=== PATIENT | male | born 1975 | race Two or more races ===

== ENCOUNTER 2016-06-23 19:37 | Observation (INO) | payer SELFPAY ==
[~2016-06-23] VITALS: Ht 154.9 cm; Wt 73.6 kg
[2016-06-23] MEDS ORDERED: FAMOTIDINE 20 MG/2 ML ONE (20:11)
[2016-06-23] MEDS ORDERED: ONDANSETRON 2MG/ML, 2ML ONE (20:11)
[2016-06-23] MEDS ORDERED: SODIUM CHLORIDE 0.9% 1,000ML IVBOLUS ONE (20:30)
[2016-06-23] MEDS ORDERED: SODIUM CHLORIDE FLUSH 10ML SYR IVF ONE (20:30)
[2016-06-23] MEDS ORDERED: FAMOTIDINE 20 MG/2 ML IVP ONE (20:30)
[2016-06-23] MEDS ORDERED: ONDANSETRON 2MG/ML, 2ML IVPush ONE (20:30)
[2016-06-23 21:26] LABS: HEMOGLOBIN 15.6 g/dL (13.7-18.0)
[2016-06-23 21:38] LABS: ASPARTATE AMINO TRANSFERASE 545 U/L (15-37); BLOOD UREA NITROGEN 10 mg/dL (7-18)
[2016-06-23] MEDS ORDERED: METRONIDAZOLE PMX 500MG/100ML 100 ML ONE (22:28)
[2016-06-23] MEDS ORDERED: CEFOTETAN PMX 2GM/50ML 50 ML IV ONE (22:30)
[2016-06-23] MEDS ORDERED: METRONIDAZOLE PMX 500MG/100ML 100 ML IV ONE (22:30)
[2016-06-24 00:13] VITALS: BP 118/73
[2016-06-24 07:59] VITALS: BP 102/62
[2016-06-24] MEDS ORDERED: BUPIVACAINE/PF-EPI 0.25% 1:200K ONE (10:37)
[2016-06-24] MEDS ORDERED: FENTANYL PF 250 MCG/5ML ONE (10:51)
[2016-06-24] MEDS ORDERED: MIDAZOLAM 1 MG/ML, 2ML ONE (10:51)
[2016-06-24] MEDS ORDERED: EPINEPHRINE 1 MG/ML, 1ML ONE (10:57)
[2016-06-24] MEDS ORDERED: SUCCINYLCHOLINE 20 MG/ML, 10ML ONE (10:57)
[2016-06-24] MEDS ORDERED: NEOSTIGMINE 1 MG/ML, 10ML ONE (10:57)
[2016-06-24] MEDS ORDERED: ROCURONIUM 10 MG/ML ONE (10:57)
[2016-06-24] MEDS ORDERED: CEFAZOLIN 1,000 MG ONE (10:57)
[2016-06-24] MEDS ORDERED: PROPOFOL 10 MG/ML, 20ML ONE (10:57)
[2016-06-24] MEDS ORDERED: DEXAMETHASONE 4 MG/ML, 1ML ONE (10:57)
[2016-06-24] MEDS ORDERED: GLYCOPYRROLATE 0.2MG/1ML ONE (10:57)
[2016-06-24] MEDS ORDERED: ONDANSETRON 2MG/ML, 2ML ONE ×2 (10:57→12:17)
[2016-06-24] MEDS: FENTANYL PF 100 MCG/2ML IV PRN ×2 (12:00→12:10)
[2016-06-24] MEDS ORDERED: FENTANYL PF 100 MCG/2ML ONE (12:17)
[2016-06-24] MEDS ORDERED: OXYcodone 5 MG/5 ML ORAL.SOL UDC ONE (12:35)
[2016-06-24] MEDS ORDERED: METOCLOPRAMIDE 5 MG/ML, 2ML IV PRN (13:00)
[2016-06-24] MEDS ORDERED: LABETALOL 5MG/ML, 20ML IV PRN (13:00)
[2016-06-24] MEDS ORDERED: OXYcodone 5 MG/5 ML ORAL.SOL UDC PO PRN (13:00)
[2016-06-24] MEDS ORDERED: ACETAMINOPHEN 325 MG TABLET PO PRN (13:00)
[2016-06-24] MEDS ORDERED: ONDANSETRON 2MG/ML, 2ML IVPush PRN (13:00)
[2016-06-24] MEDS ORDERED: hydrALAzine 20 MG/ML, 1ML IV PRN (13:00)
[2016-06-24] MEDS ORDERED: HYDROmorphone 1 MG/ML, 1ML IV PRN (13:00)
[2016-06-24 13:22] VITALS: BP 122/79
[2016-06-24] MEDS: MORPHINE SULFATE 4 MG/ML, 1ML IV PRN ×2 (14:05→20:03)
[2016-06-24] MEDS: OXYcodone/APAP 5/325MG TABLET PO PRN ×2 (16:42→20:47)
[2016-06-24 20:28] VITALS: BP 114/67
[2016-06-24] MEDS: ONDANSETRON 2MG/ML, 2ML IV PRN (20:47)
[2016-06-25 01:24] VITALS: BP 101/64
[2016-06-25] MEDS: ONDANSETRON 2MG/ML, 2ML IV PRN ×2 (01:38→06:27)
[2016-06-25 04:11] VITALS: BP 106/60
[2016-06-25] MEDS ORDERED: IBUP800T PO (05:25)
[2016-06-25] MEDS ORDERED: OXYC1TAB8 PO (05:27)
[2016-06-25 07:58] VITALS: BP 104/63
[2016-06-25] MEDS: OXYcodone/APAP 5/325MG TABLET PO PRN (10:05)
== END 2016-06-25 10:41 | disposition home or self-care (01) ==
LOC: ED 22:06 → INTOOBSV 22:17 → EDIP 22:17 → 4NOR 23:14 → DCLOUNGE 06-25 10:26
PROVIDERS: ADMIT Surgery; ATTEND Surgery
DX: K80.00 Calculus of gallbladder with acute cholecystitis without obstruction (principal); K85.90 Acute pancreatitis without necrosis or infection, unspecified; K66.8 Other specified disorders of peritoneum; Z83.3 Family history of diabetes mellitus
CPT/HCPCS: 36415; 47562; 76700; 80053; 81001; 83690; 85025; 88304; 96365; 96367; 96375; 96376; 99285; G0378; J0171; J0330; J0690; J1100; J2250; J2405; J2704; J2710; J3010; J7030; S0074; J3490; S0028